=== PATIENT | female | born 1970 | race Caucasian/White ===

== ENCOUNTER 2024-08-15 21:32 | Inpatient (IN) | payer BC, MEDICAID, SELFPAY ==
--- OUTSIDE RECORDS SUMMARY | 2024-08-15 21:38 | XMS_ITS | Data Portability ---
Author Organization MARLENE Mickie liu [facility] Address [address] [place] [id number] Care Team Providers Care Bending Roll Operator Name Role Phone JUDITHCARIE SEGUNDO Referring Provider Unavailable Assessment Encounter Date Assessment Date Assessment LastModified by Organization Details LastModified Time 10/19/2023 10/19/2023 Assessment: Patient is a 53-year-old female presents to the ambulatory clinic with a counselor from [facility] with a left ankle fracture. This patient is currently experiencing a closed left trimalleolar ankle fracture that is being treated conservatively due to her medical conditions and previous history of suicide ideation. Plan: - Patient's chart was examined, assessed, and reviewed with Dr. Vero Reyes DPM - Patient education about ankle fractures was given to the patient, including it's etiologies, assessment, and treatment options. The patient had no further questions or concerns. -Radiographs of the left ankle was reviewed with the patient. Patient understood and had no further questions. -It was emphasized to the patient that she would nonweightbearing of the lower left extremity and attempt to elevate as much as possible. She will continue to wear the cam boot as much as possible to prevent further dislocation of the ankle fracture. -As stated earlier, the the ankle fracture will be treated conservatively due to her past medical history. -The left ankle was wrapped with Webril and Alexei. It was noted that she did have previous Alexei wraps upon arrival at the clinic. - Patient will return to clinic 2 weeks for reevaluation of her left ankle fracture. Not available 10/19/2023 13:05:27 11/09/2023 11/09/2023 Assessment: Patient is a 53-year-old female presents to the ambulatory clinic with a counselor from [facility] with a left ankle fracture. This patient is currently experiencing a closed left trimalleolar ankle fracture that is being treated conservatively due to her medical conditions and previous history of suicide ideation. Plan: - Patient's chart was examined, assessed, and reviewed with Dr. Vero Reyes DPM - Patient education about ankle fractures was given to the patient, including it's etiologies, assessment, and treatment options. The patient had no further questions or concerns. -Radiographs of the left ankle was reviewed with the patient. Patient understood and had no further questions. -It was emphasized to the patient that she would nonweightbearing of the lower left extremity and attempt to elevate as much as possible. She will continue to wear the cam boot as much as possible to prevent further dislocation of the ankle fracture. -As stated earlier, the the ankle fracture will be treated conservatively due to her past medical history. - Patient will return to clinic prn. Patient stated that she is moving to [place], [place] permanently due to her snf situation. She was recommended to see a recruitment assistant in the area and recommendations were given to her. Not available 11/09/2023 10:11:10 11/23/2023 11/23/2023 Assessment: Patient is a 53-year-old female presents to the ambulatory clinic with a counselor from [facility] with a left ankle fracture. This patient is currently experiencing a closed left trimalleolar ankle fracture that is being treated conservatively due to her medical conditions and previous history of suicide ideation. Plan: - Patient's chart was examined, assessed, and reviewed with Dr. Vero Reyes DPM - Patient education about ankle fractures was given to the patient, including it's etiologies, assessment, and treatment options. The patient had no further questions or concerns. -Radiographs of the left ankle was reviewed with the patient. Patient understood and had no further questions. After reviewing her distal fibula fracture, it was deem that she failed conservative treatment and would require surgery. She would need to be referred to another physician due to the lack of physicians able to perform ankle surgery in the clinic -It was emphasized to the patient that she would nonweightbearing of the lower left extremity and attempt to elevate as much as possible. She will continue to wear the cam boot as much as possible to prevent further dislocation of the ankle fracture. - Patient is referred to the Dr. Damien Zuleta for surgical intervention. Information about him was given. - Patient will return to clinic prn. Not available 11/23/2023 11:12:59 Plan of Treatment Reminders Order Date Submit Date Provider Last Modified By Organization Details Last Modified Time Details Appointments None recorded. Lab None recorded. Referral recruitment assistant referral - patient is currently moving to [place] and would need to follow up. Hx of suicidal Ideation and wheel chair bound. 2023 024 [email or web address] Priya Ba DPM, [address] [facility], [facility] [address], [place], [address], 07:21:28 recruitment assistant referral - patient failed conservativ e treatment and requires surgery. Hx of suicidal ideation. 2023 024 [email or web address] Damien Zuleta DPM, [address] [place], [address], 11:31:44 Procedures None recorded. Surgeries None recorded. Imaging None recorded. Medication Orders None recorded. Patient TargetsNo targets recorded. Patient Instructions Encounter Date Encounter Id Patient Instructions Last Modified By Organization Details Last Modified Time 10/19/2023 [id number] Added by the Teaching Physician at time of signature (see signature below). GC : I personally saw, evaluated and participated in the management plan of this patient. All findings were discussed and I agree with the plan as documented in the resident's note. Additions, if any: [email or web address] Not available 10/19/2023 13:51:32 11/09/2023 [id number] Added by the Teaching Physician at time of signature (see signature below). GC : I personally saw, evaluated and participated in the management plan of this patient. All findings were discussed and I agree with the plan as documented in the resident's note. Additions, if any: [email or web address] Not available 11/09/2023 10:20:05 11/23/2023 [id number] Added by the Teaching Physician at time of signature (see signature below). GC : I personally saw, evaluated and participated in the management plan of this patient. All findings were discussed and I agree with the plan as documented in the resident's note. Additions, if any: [email or web address] Not available 11/23/2023 11:31:20 Reason for Referral Polisher [employer] Sander Referral for Clos ed fracture of ankle patient is currently moving to [place] and would need to follow up. Hx of suicidal Ideation and wheel chair bound. Referring Physician: Vero Reyes Podiatry, Encounter Date: 11/09/2023 Polisher [employer] Sander Referral for Clos ed fracture of ankle patient failed conservative treatment and requires surgery. Hx of suicidal ideation. Referring Physician: Lei Pikeiatry, Encounter Date: 11/23/2023 Results Created Date Observation Date Name Description Value Unit Range Abnormal Flag Note LastModifiedBy Organization Detail LastModifiedTime 10/19/19 24 10/19/2023 XR, ankle , 3 or more view Patien t Name: NICOLETTE LEE [phone] Locati on: [facility] [place] [address]- Radiol ogy ACCESS ION EXAM DATE/T EDDIE PROCED URE ORDERI NG STATUS PROVID ER [id number] XR Ankle HEINO DIGITAL MARKETING PROJECT MANAGER, Auth 52 10:59 EST Comple te Left KATHLE EN A (Verif ied) Reason For Exam (XR Ankle Comple te Left) f/u hubbard b2 left ankle fractu re Report Left ankle radiog raphs, 3 views. INDICA TION: Follow -up left ankle fractu re. COMPAR CIPRIANO: None FINDIN GS/IMP RESSIO N: Redemo nstrat ion of healin g intra- articu lar obliqu e fractu re throug h the distal fibula r metaph ysis at the level of the talar dome. Additi onal tiny avulsi on deform ity of the medial malleo melyssa with wideni ng of the medial clear space. Mild soft tissue swelli ng, which improv ed as compar ed to the prior exam. Straddle Bug ior malleo melyssa appear s intact . Eva samano Site: [facility] ____ Mark salinas Report Dictat ed: 2023 11:19 am Dictat ed By: MIKE LARA MD Signat ure: 2023 11:25 am Signed By: MARCO BENJAMIN, MIKE Gonzalez ing: SYLVESTER ZHAO, VERO Singleton Consul ting: [facility] (Scheduling Dept) [address] [place] [address], [id number], 10/19/2023 13:52:10 11/09/19 24 11/09/2023 XR, ankle , 3 or more view Patien t Name: NICOLETTE LEE [phone] Locati on: [facility] [address] [address]- Radiol ogy ACCESS ION EXAM DATE/T EDDIE PROCED URE ORDERI NG STATUS PROVID ER [id number] XR Ankle HEINO D[employer] MARKETING PROJECT MANAGER, Auth 17 08:33 EDT Comple te Left KATHLE EN A (Verif ied) Reason For Exam (XR Ankle Comple te Left) left ankle fractu re and pain Report STUDY: XR Ankle Comple te Minimu m 3 Vws Left INDICA TION: : left ankle fractu re and pain COMPAR CIPRIANO: 024 FINDIN GS: The bones of the left ankle demons trate a fractu re throug h the distal fibula just above the ankle joint mortis e. A modera te amount of perios teal new bone is identi fied along the commercial front load operator ior edge fractu re. There is been no change in alignm ent. IMPRES MARQUIS: Healin g fractu re of the left distal fibula . Readrandell samano Site: [facility] ____ Fin al Report Dictat ed: 2023 8:45 am Dictat ed By: TONYA LOPEZ ND, MD Signat ure: 2023 8:47 am Signed By: TONYA LOPEZ ND, MD ing: SYLVESTER ZHAO, VERO Singleton Consul ting: [facility] (Scheduling Dept) [address] [place] [address], [id number], 11/09/2023 11:55:15 11/23/19 24 11/23/2023 XR, ankle , 3 or more view Patien t Name: NICOLETTE LEE [phone] Locati on: [facility] [address] [address]- Radiol ogy ACCESS ION EXAM DATE/T EDDIE PROCED URE ORDERI NG STATUS PROVID ER [id number] 11/23/19 24 08:31 XR Ankle AUGUST DPM, Auth 25 EDT Comple te Left ANDREIA W (Verif ied) Reason For Exam (XR Ankle Comple te Left) fractu re of ankle Report Left ankle radiog raphs, 3 views. INDICA TION: Follow -up left ankle fractu re. COMPAR CIPRIANO: Recent exam November 09, 2023 FINDIN GS/IMP RESSIO N: No apprec iable change in the appear ance of the known incomp lete healin g intra- articu lar obliqu e fractu re throug h the distal fibula r metaph ysis at the level of the talar dome. Additi onal tiny avulsi on deform ity of the medial malleo melyssa with wideni ng of the medial clear space. Mild soft tissue swelli ng, which improv ed as compar ed to the prior exam. Straddle Bug ior malleo melyssa appear s intact . Rest of the findin gs simila r to before . Readrandell samano Site: [facility] ____ Mark salinas Report Dictat ed: 2023 9:08 am Dictat ed By: CORRINE JACOBS MD onic Signat ure: 2023 9:10 am Signed By: CORRINE JACOBS MD ing: SYLVESTER ZHAO, VERO Singleton Consul ting: [facility] (Scheduling Dept) [address] [place] [address], [id number], 11/23/2023 13:09:57 Result Notes None recorded. Procedures Surgical History None recorded. Imaging Results Imaging Date Name Status LastModified by Organiz ation Details LastModified Time 10/19/2023 XR, ankle, [address] [facility] (Scheduling Dept) [address] [place], [address], 10/19/2023 13:52:10 11/09/2023 XR, ankle, [address] [facility] (Scheduling Dept) [address] [place], [address], 11/09/2023 11:55:15 11/23/2023 XR, ankle, 3 or more view completed [address] (Scheduling Dept) [address] [place], [address], 11/23/2023 13:09:57 Procedure Notes None recorded. Medical Equipment None Reported. Allergies No known drug allergies Medications Name Sig Start Date Stop Date Status Note LastModified by Organization Details LastModified Time bupropion HCl SR 150 mg tablet,12 hr sustained-re lease 11/22 completed Not Available Not Available Not Available venlafaxine ER 37.5 mg capsule,exte nded release 24 hr 11/22 completed Not Available Not Available Not Available oxybutynin chloride ER 15 mg tablet,exten ded release 24 hr active Not Available Not Available Not Available gabapentin 600 mg tablet 11/22 completed Not Available Not Available Not Available venlafaxine ER 150 mg capsule,exte nded release 24 hr Take 1 capsule every day by oral route. 11/22 completed Not Available Not Available Not Available omeprazole 40 mg capsule,clint yed release 11/22 completed Not Available Not Available Not Available bupropion HCl 100 mg tablet Take 1 tablet twice a day by oral route. active Not Available Not Available No t Available trazodone 100 mg tablet 11/22 completed Not Available Not Available Not Available buspirone 10 mg tablet 11/22 completed Not Available Not Available Not Available Ear Drops (carbamide peroxide) 6.5 % 11/22 completed Not Available Not Available Not Available gabapentin 300 mg capsule Take 1 capsule 3 times a day by oral route. active Not Available Not Available No t Available hydroxyzine HCl 25 mg tablet Take 1 tablet 3 times a day by oral route. 2023 active Not Available Not Available Not Avai lable gabapentin 100 mg capsule Take 1 capsule 3 times a day by oral route. 11/08 completed Not Available Not Available Not Available lorazepam 1 mg tablet prn for imaging/ dental active Not Available Not Available No t Available fluticasone propionate 50 mcg/actuatio n nasal spray,suspen marquis 11/22 completed Not Available Not Available Not Available Trazodone 50 mg tablet Take 1 tablet every day by oral route. active Not Available Not Available No t Available Siltussin-DM 10 mg-100 mg/5 mL oral syrup active Not Available Not Available Not Available bupropion HCl SR 200 mg tablet,12 hr sustained-re lease 11/22 completed Not Available Not Available Not Available escitalopram 10 mg tablet 11/22 completed Not Available Not Available Not Available escitalopram 20 mg tablet 11/22 completed Not Available Not Available Not Available loratadine active Not Available Not Av ailable Not Available ammonium lactate topical cream active Not Available Not Available No t Available acetaminophe n 650 mg by moyth every 6 hours as needed active Not Available Not Available No t Available methocarbamo l 750 mg bid prn for muscle spasm active Not Available Not Available No t Available trazodone 12.5 ng twice daily as needed anxiety active Not Available Not Available No t Available cholecalcife rol (vitamin D3) 50 mcg (2,000 unit) tablet 11/22 completed Not Available Not Available Not Available Gajc-Rfiq-Xy ils (multivit-fo lic-biotin) 400 mcg-2,000 mcg tablet active Not Available Not Available N ot Available Vitals Date Recorded Body height Heart rate Oxygen saturation Oxygen saturation in Arterial blood by Pulse oximetry Systolic blood pressure Diastolic blood pressure Provider Name and Address Organization Details Last Updated DateTime 4 154.94 cm 111 /min 98 % 98 % 114 mm[Hg] 66 mm[Hg] Precious Madrigal RN, [place] - [facility] 4 12:03:54 Date Recorded Body height Heart rate Oxygen saturation Oxygen saturation in Arterial blood by Pulse oximetry Systolic blood pressure Diastolic blood pressure Provider Name and Address Organization Details Last Updated DateTime 4 154.94 cm 95 /min 96 % 96 % 98 mm[Hg] 64 mm[Hg] Precious Madrigal RN [facility] 4 09:34:25 Date Recorded Body height Heart rate Oxygen saturation Oxygen saturation in Arterial blood by Pulse oximetry Systolic blood pressure Diastolic blood pressure Provider Name and Address Organization Details Last Updated DateTime 4 154.94 cm 92 /min 98 % 98 % 108 mm[Hg] 68 mm[Hg] Adry August RN [facility] 4 09:17:11 Social History Question Answer Notes LastModified by Organizat ion Details LastModified Time Tobacco Smoking Status Former Smoker Precious Madrigal RN [facility] [place] 10/19/2023 11:59:07 What Is Your Level Of Alcohol Consumption? None Information not available 10/19/2023 Are You Blind Or Do You Have Difficulty Seeing? Yes Quad Vision Patch On L Eye - Call Thang Disease Per Pt Information not available 10/19/2023 Are You Deaf Or Do You Have Serious Difficulty Hearing? No Information not available 10/19/2023 What Type Of Diet Are You Following? REGULAR Information not available 10/19/2023 Do You Currently Feel Safe Where You Live? No Information not available 10/19/2023 Have You Fallen Or Lost Your Balance In The Last 3 Months? Yes 2 Weeks Ago Fell Off Toilet In [facility] , Loc Injured L Ankle Information not available 10/19/2023 Is Patient Confused? No Information not available 10/19/2023 Is The Patient Using An Assistive Device? Yes Wc/ortho Boot Information not available 10/19/2023 Unintentional Weight Loss/gain Of Over 10 Lbs In The Past 6 Months No Information no t available 10/19/2023 Have You Traveled Outside The Country Recently? Yes Information no t available 10/19/2023 What Was The Date Of Your Most Recent Tobacco Screening? 11/23/2023 Information not available 11/23/2023 What Is Your Relationship Status? Single Information not available 10/19/2023 Do You Feel Stressed (tense, Restless, Nervous, Or Anxious, Or Unable To Sleep At Night)? [id number] Information not available 10/19/2023 Do You Use Any Illicit Or Recreational Drugs? No Information not available 10/19/2023 Sex: Unknown Functional Status Question Answer Note LastModified by Organizat ion Details LastModified Time Are you able to care for yourself? Yes homeless recent suicide attempt 08/04/23 inpt at [facility] 11/23/23awit [facility] Information not available 11/23/2023 Mental Status None recorded. Family History Nothing Reported. Medical History No medical history recorded. Gynecological HistoryNo gynecological history recorded. Obstetrics History GPAL:G 0 P 0 0 0 0 Past Encounters Encounter ID Performer Location Encounter Start Date Encounter Closed Date Diagnosis/Indication Diagnosis SNOMED-CT Code Diagnosis ICD10 Code [id number] Vero Reyes DPM [facility] - Podiatry [address] [place] [id number] 10/19/2023 11:34:27 10/19/2023 12:52:46 Closed fracture of ankle 49664659 S82.92XA [id number] Vero Reyes DPM [facility] - Podiatry [address] [place] [phone] 11/09/2023 09:19:03 11/09/2023 10:40:34 Closed fracture of ankle [id number] S82.92XA [id number] Vero Reyes DPM [facility] - Podiatry [address] [place] [phone] 11/23/2023 08:34:15 11/23/2023 11:36:55 Closed fracture of ankle [id number] S82.92XA Health Concerns Section Related Observation LastModified by Organization Detai ls LastModified Time None Recorded Concern Status LastModified by Organization Details LastModified Time None Recorded Advance Directives Directive None Recorded Payers Encounter Date Sequence Insurance Name Policy Number Policy Garcia Covered Member ID Garcia Member ID Guarantor Name 10/19/2023 1 [facility] [employer] BLUE [employer]IELD [id number] Genoveva Tadeo [id number] Genoveva Tadeo 10/19/2023 2 [place] Genoveva Carlyle [id number] Genoveva Carlyle 11/09/2023 1 [place] [facility] [id number] Genoveva Carlyle [id number] Genoveva Carlyle 11/09/2023 2 [place] [facility] Genoveva Oconnorevedo [id number] Genoveva Carlyle 11/23/2023 1 [place] [facility] [id number] Genoveva Carlyle [id number] Genoveva Carlyle 11/23/2023 2 [place] Genoveva Carlyle [id number] Genoveva Carlyle Notes Date Note Type Note Provider Name and Address Organization Details Recorded Time 10/19/2023 text/html Patient is a 53-year-old female presents to the ambulatory clinic with a counselor from [facility] with a left ankle fracture. Patient suffered syncope episode a couple weeks ago with head strike and does not recall the mechanism of her ankle injury. She associates the syncope episode with her periods. 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 Patient reports that she try to get up on left ankle and was unable to due to pain. She is under section 12 at this time. She does have an eye patch on her right eye in which she reports myopia and quadruple vision. She was placed in a cam boot with previous ALEXEI dressings a [facility]. She did suffer a previous fracture in 2021 of the left ankle. She denies calf pain, SOB, chest pain, nausea, vomiting, and fever. Vero Reyes DPM [address] [place], [phone], [facility] 10/19/2023 13:51:48 11/09/2023 text/html Patient is a 53-year-old female presents to the ambulatory clinic with a counselor from [facility] with a left trimalleolar ankle fracture. Patient suffered syncope episode a month ago with head strike and does not recall the mechanism of her ankle injury. She associates the syncope episode with her periods. 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 Patient reports that she try to get up on left ankle and was unable to due to pain. She is under section 12 at this time. She does have an eye patch on her right eye in which she reports myopia and quadruple vision. She was placed in a cam boot with previous ALEXEI dressings a [facility]. She did suffer a previous fracture in 2021 of the left ankle. She denies calf pain, SOB, chest pain, nausea, vomiting, and fever. Vero Reyes DPM [address] [place], [phone], [facility] 11/09/2023 10:20:18 11/23/2023 text/html Patient is a 53-year-old female presents to the ambulatory clinic with a counselor from [facility] with a left trimalleolar ankle fracture and returned to the clinic due to her housing situation in [place] being unsuccessful. Patient suffered syncope episode a month ago with head strike and does not recall the mechanism of her ankle injury. She associates the syncope episode with her periods. 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 Patient reports that she try to get up on left ankle and was unable to due to pain. She is under section 12 at this time. She is still wheel chair bound with a CAm boot on. She did suffer a previous fracture in 2021 of the left ankle. She denies calf pain, SOB, chest pain, nausea, vomiting, and fever. Vero Reyes DPM [address] [place], [phone], [facility] 11/23/2023 11:31:39 OBGyn Episode No OBEpisode recorded.
--- OUTSIDE RECORDS SUMMARY | 2024-08-15 21:39 | XMS_ITS | Data Portability ---
Author Organization [place] - [facility] [email or web address] Jian Address [address] [place] [address] Care Team Providers Care Tire Spotter Name Role Phone FUNMI CARRILLO Primary Care Provider XAVI MILES Referring Provider Assessment No assessment recorded. Plan of Treatment Reminders Order Date Submit Date Provider Last Modified By Organization Details Last Modified Time Details Appointments None recorded. Lab None recorded. Referral otolaryngo logist referral - please evaluate for inspire - mild sleep apnea, intolerant to cpap 2022 023 BARTOLO Mackey MD, [address] [place] [address], [id number], 3 13:17:45 Procedures None recorded. Surgeries None recorded. Imaging None recorded. Medication Orders None recorded. Patient TargetsNo targets recorded. Patient InstructionsNo instructions recorded. 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 ? Inspire please evaluate for inspire - mild sleep apnea, intolerant to cpap Referring Physician: Charles Sams, Pulmonary Disease, Encounter Date: 06/29/2023 Results Created Date Observation Date Name Description Value Unit Range Abnormal Flag Note LastModifiedBy Organization Detail LastModifiedTime 01/01/20 CPAP compl iance * No observ ation record ed. [email or web address] Not Available 12/31 15:52:55 02/13/20 23 02/11/2023 CPAP compl iance * No observ ation record ed. [email or web address] Not Available 02/12 12:28:58 02/13/20 CPAP compl iance * No observ ation record ed. [email or web address] Not Available 02/12 12:28:58 03/19/20 23 03/18/2023 CPAP compl iance * No observ ation record ed. [email or web address] Not Available 03/19 11:02:26 Result Notes None recorded. Problems Name Problem SNOMED Code Status Onset Date Resolution Date Notes Provider Name and Address Organization Details Recorded Time Obstructive sleep apnea of adult 9218701791185 Active 2022 Charles Sams PA-C [address], [place], [address] [place] [address] [employer] 12:51:44 Problem Notes None recorded. Procedures Surgical History Date Name Laterality Status Provider Name and Address Organization Details Recorded Time Carpal Tunnel Surgery completed Nichole Escobar [facility] [employer] 03/25/2023 12:30:37 Tonsillectomy completed Malaika Florence [facility] [employer] 10/08/2022 10:32:40 Imaging Results Imaging Date Name Status LastModified by Organiz ation Details LastModified Time 12/31/2022 CPAP compliance * completed [email or web address] Information not available 12/31/2022 15:52:55 02/11/2023 CPAP compliance * completed Information not available 02/12/2023 12:28:58 02/12/2023 CPAP compliance * completed Information not available 02/12/2023 12:28:58 03/18/2023 CPAP compliance * completed Information not available 03/19/2023 11:02:26 Procedure Notes None recorded. Medical Equipment None Reported. Allergies Allergen ID Allergen Name Allergen Category Reaction Reaction Severity Criticality Documentation Date Start Date Code Code System Note Provider Name and Address Organization Details Recorded Time 7847 aspirin medicatio n Not available Not available Not available 10/08/2022 1191 RxNorm BRUIS ING Malaika [facility] [employer] 10:26:06 Medications Name Sig Start Date Stop Date Status Note LastModified by Organization Details LastModified Time bupropion HCl SR 150 mg tablet,12 hr sustained-r elease Take 1 tablet twice a day by oral route for 30 days. 06/29 completed Not Available Not Available Not Available venlafaxine ER 37.5 mg capsule,ext ended release 24 hr active Not Available Not Available Not Available acetaminoph en 325 mg tablet Take as needed by oral route for 8 days. active Not Available Not Available No t Available venlafaxine ER 75 mg capsule,ext ended release 24 hr TAKE 3 CAPSULES ORALLY DAILY W/MEAL active Not Available Not Available No t Available oxybutynin chloride ER 15 mg tablet,exte nded release 24 hr Take 1 tablet every day by oral route for 30 days. active Not Available Not Available No t Available gabapentin 600 mg tablet Take 1 tablet every day by oral route at bedtime for 30 days. active Not Available Not Available No t Available trazodone 50 mg tablet 10/08 completed Not Available Not Available Not Available senna 8.6 mg tablet Take as needed by oral route for 30 days. active Not Available Not Available No t Available ondansetron HCl 4 mg tablet Take 1 tablet as needed by oral route for 10 days. active Not Available Not Available No t Available venlafaxine ER 150 mg capsule,ext ended release 24 hr active Not Available Not Available Not Available melatonin 3 mg tablet TAKE 3 TABLETS ORALLY AT BEDTIME FOR 30 DAY active Not Available Not Available No t Available omeprazole 40 mg capsule,del ayed release Take 1 capsule every day by oral route for 30 days. active Not Available Not Available No t Available trazodone 100 mg tablet TAKE 1 TABLET BY MOUTH EVERYDAY AT BEDTIME active Not Available Not Available No t Available meclizine 25 mg tablet Take 1 tablet as needed by oral route for 20 days. active Not Available Not Available No t Available buspirone 10 mg tablet active Not Available Not Available Not Available Ear Drops (carbamide peroxide) 6.5 % active Not Available Not Available Not Available gabapentin 300 mg capsule TAKE 1 CAPSULE BY MOUTH THREE TIMES A DAY active Not Available Not Available No t Available lorazepam 1 mg tablet Take 1 tablet as needed by oral route for 2 days. active Not Available Not Available No t Available fluticasone propionate 50 mcg/actuati on nasal spray,suspe nsion C[place]olla 1 spray every day by nasal route for 30 days. active Not Available Not Available No t Available loratadine 10 mg tablet TAKE 1 TABLET BY MOUTH EVERY DAY active Not Available Not Available No t Available Siltussin-D M 10 mg-100 mg/5 mL oral syrup 06/29 completed Not Available Not Available Not Available bupropion HCl SR 200 mg tablet,12 hr sustained-r elease active Not Available Not Available Not Available escitalopra m 10 mg tablet 06/29 completed Not Available Not Available Not Available escitalopra m 20 mg tablet Take 1 tablet every day by oral route for 30 days. active Not Available Not Available No t Available triamcinolo ne acetonide 0.05 % topical ointment active Not Available Not Available Not Available bupropion HCl XL 300 mg 24 hr tablet, extended release TAKE 1 TABLET BY MOUTH EVERY DAY active Not Available Not Available No t Available cholecalcif kaye (vitamin D3) 50 mcg (2,000 unit) tablet Take 1 tablet every day by oral route for 30 days. active Not Available Not Available No t Available Hair-Skin-N ails (multivit-f olic-biotin ) 400 mcg-2,000 mcg tablet active Not Available Not Available N ot Available Vitals Date Recorded Body height Body mass index (BMI) Body weight Oxygen saturation Oxygen saturation in Arterial blood by Pulse oximetry Heart rate Systolic blood pressure Diastolic blood pressure Provider Name and Address Organization Details Last Updated DateTime 3 154.94 cm 31.6 kg/m2 63121.9 3 g 99 % 99 % 94 /min 118 mm[Hg] 60 mm[Hg] Malaika Florence [facility] Sleep [facility] [employer] 3 10:25:36 Date Recorded Body height Body mass index (BMI) Body weight Oxygen saturation Oxygen saturation in Arterial blood by Pulse oximetry Heart rate Systolic blood pressure Diastolic blood pressure Provider Name and Address Organization Details Last Updated DateTime 3 154.94 cm 30.8 kg/m2 80309.5 6 g 95 % 95 % 88 /min 115 mm[Hg] 70 mm[Hg] Nichole Escobar [facility] Sleep Medicine [employer] 3 12:29:19 Date Recorded Body height Body mass index (BMI) Body weight Oxygen saturation Oxygen saturation in Arterial blood by Pulse oximetry Heart rate Systolic blood pressure Diastolic blood pressure Provider Name and Address Organization Details Last Updated DateTime 3 154.94 cm 28.9 kg/m2 27767.6 3 g 100 % 100 % 94 /min 122 mm[Hg] 84 mm[Hg] Meredith Ribera [facility] [employer] 3 11:56:10 Social History Question Answer Notes LastModified by Organizat ion Details LastModified Time Tobacco Smoking Status Former Smoker 1 PPD Malaika santos [place] - [facility] [employer] 10/08/2022 10:32:33 What Is Your Level Of Alcohol Consumption? Occasional [email or web address] Information not available 10/08/2022 Have You Been Exposed To Chemicals Or Toxins? No [email or web address] Information not available 10/08/2022 Have You Been Exposed To Heavy Metals? No [email or web address] Information not available 10/08/2022 Do You Have Any Pets? No [email or web address] Information not available 10/08/2022 Are You Passively Exposed To Smoke? Yes OCCATIONAL [email or web address] Information not available 10/08/2022 How Many Years Have You Smoked Tobacco? 25 [email or web address] Information not available 10/08/2022 Sex: Unknown Functional Status None recorded. Mental Status None recorded. Family History Relationship Description Onset Age of this Age Resolved Age Notes LastModified by Organization Details LastModified Time Father Ataxia [email or web address] Not available 10/08/2022 10:30:57 Mother Diabetes mellitus [email or web address] Not available 10/08 10:31:15 Mother Kidney disease [email or web address] Not available 10/08 10:31:21 Mother Hypertensive disorder Not available 10/08 10:31:30 Sister Hypertensive disorder [email or web address] Not available 10/08 10:31:30 Medical History Condition Response Depression Y Anxiety Disorder Y Acid Reflux (GERD) Y Heart Problems Y Gynecological HistoryNo gynecological history recorded. Obstetrics History GPAL:G 0 P 0 0 0 0 Past Encounters Encounter ID Performer Location Encounter Start Date Encounter Closed Date Diagnosis/Indication Diagnosis SNOMED-CT Code Diagnosis ICD10 Code [id number] MD Janelle Sampson ( Office) [address] [place] [address] [place] [address] 10/08/2022 09:34:15 10/08/2022 11:01:25 Obstructive sleep apnea of adult 1861629129 103 G47.33 [id number] MD Janelle Sampson (EP Office) [address] [place] [address] PADMINI CURRIE [address] 03/25/2023 11:58:53 03/25/2023 12:54:00 Obstructive sleep apnea of adult 0862158525 103 G47.33 [id number] MD Janelle Sampson (EP Office) [address] [facility] PADMINI CURRIE [address] 06/29/2023 11:49:33 06/29/2023 12:25:10 Obstructive sleep apnea of adult 4082952458 103 G47.33 Health Concerns Section Related Observation LastModified by Organization Detai ls LastModified Time None Recorded Concern Status LastModified by Organization Details LastModified Time None Recorded Advance Directives Directive None Recorded Payers Encounter Date Sequence Insurance Name Policy Number Policy Garcia Covered Member ID Garcia Member ID Guarantor Name 10/08/2022 1 [place]MEDICARE [place]AC[place]/ ADVANTAGE - HMO) [id number] Genoveva Carlyle [id number] Genoveva Carlyle 03/25/2023 2 [place] Genoveva Carlyle [id number] Genoveva Carlyle 03/25/2023 1 [place]PLAC[place]/ ADVANTAGE - HMO) [id number] Genoveva Carlyle [id number] Genoveva Carlyle 06/29/2023 2 [place] Genoveva Carlyle [id number] Genoveva Carlyle 06/29/2023 1 [place]MED[place]PLAC[place]/ ADVANTAGE - HMO) [id number] Genoveva Carlyle [id number] Genoveva Carlyle Notes Date Note Type Note Provider Name and Address Organization Details Recorded Time 10/08/2022 text/html The patient is a 52 year old f who I am seeing today for obstructive sleep apnea. Patient has a history of Call Thang disease. She also has a history of diplopia. Her roommates complain that she snores loudly. She never feels rested. She will occasionally take a nap during the day. Her typical bedtime is around 10:00 a.m.. She frequently wakes up at around 4:30 a.m.. She does not recall waking up gasping for air but she does wake up because of nightmares. In fact, she has fallen out of bed a number of times because of her nightmares. In addition, her roommates complain that she screams in her sleep. There is no history of Parkinson disease or dementia.Sleep testing: home sleep apnea testing confirmed the presence of mild obstructive sleep apnea with an apnea-hypopnea index of over 13 and a minimum oxygen saturation of 74%.. Manan Melendez MD [address] [place] [address], [phone], [facility] [employer] 10/08/2022 10:57:05 03/25/2023 text/html [facility] PAP F/UReported bypatient.Sleep Issues:obstructive sleep apnea. History of present illness:The patient is currently being treated with APAP.; The patient denies problems with sleep initiation.; She c/o sleep maintenance issues.; Complains of issues with the mask or machine.; She awakens during the night and finds the mask to be very uncomfortable. Pap questions:Problems with CPAP;problems with sleep maintenance;remove s CPAP mask during the night Pressure settings:APAP 5-20 CWP Compliance/usage:T he patient uses the device on 57 % of nights reviewed; and uses the device for > 4 hrs per night 11 % of the time.; Average usage: 2-3 hours .; AHI is 2.4. Manan Melendez MD [address] [place] [address], [phone], [facility] [employer] 03/30/2023 13:39:36 06/29/2023 text/html [facility] PAP F/UReported bypatient.Sleep Issues:obstructive sleep apnea.; Patient presents to the office for follow-up on sleep apnea and REM sleep behavior disorder. She has struggled with autopap therapy and is currently off of treatment. she did try multiple different mask style options without success. She is interested in discussing other options for treatment of the sleep apnea. Her home sleep study from June 2022 had demonstrated mild sleep apnea with an AHI of 13 events/hour of sleep. History of present illness:The patient is currently being treated with APAP. Manan Melendez MD [address], [place], [address], [facility] 06/29/2023 13:52:02 OBGyn Episode No OBEpisode recorded.
--- OUTSIDE RECORDS SUMMARY | 2024-08-15 21:39 | XMS_ITS | Continuity of Care Document ---
Author Organization [facility] Address [address] [place] [address] Phone Care Team Providers Care Financial Investment Manager Name Role Phone Marleni Rosario FRANCO Unavailable Unavailable Allergies, Adverse Reactions, Alerts Substance Reaction Status Criticality No Known Allergies Active No Inform ation Medications Medication Instructions Dosage Effective Dates (start - stop) Status Comments Tylenol 325 mg tablet take 1 tablet by oral route every 8 hrs with food as needed for pain - Active ibuprofen 600 mg tablet take 1 tablet by oral route every 8 hrs with food as needed for pain - Active ondansetron HCl 4 mg tablet take 2 tablet by oral route 2 times every day 8 MG - Active Cerovite Jr 18 mg iron-10 mcg chewable tablet - Active buspirone 10 mg tablet take 1 tablet by oral route 2 times every day 10 MG - Active venlafaxine (unknown strength) Not Available - Active BEANO BUCCAL ADH. PATCH - Active fluticasone prop (unknown strength) Not Available - Active GABAPENTIN (unknown strength) take 1 capsule by oral route 3 times every day Not Available - Active HAIR, SKIN AND NAILS (unknown strength) Not Available - Active OMEPRAZOLE (unknown strength) take 1 capsule by oral route every day before a meal Not Available - Active OXYBUTYNIN CHLORIDE ER (unknown strength) take 1 tablet by oral route every day Not Available - Active TRAZODONE HCL (unknown strength) take 1 tablet by oral route 2 times every day after meals Not Available - Active vitamin d3 (unknown strength) Not Available - Active ACETAMINOPHEN (unknown strength) Not Available - Active BENADRYL ITCH STOPPING (unknown strength) Not Available - Active CALCIUM ANTACID (unknown strength) Not Available - Active SILTUSSIN DM (unknown strength) take 10 milliliter by oral route every 4 hours as needed Not Available - Active SENNA (unknown strength) take 2 capsule by oral route every day Not Available - Active ZUPLENZ (unknown strength) take 2 film by oral route 2 times every day and place on top of the tongue where it will dissolve, then swallow Not Available - Active MUCINEX (unknown strength) take 1 tablet by oral route every 12 hours as needed Not Available - Active MECLIZINE HCL (unknown strength) take 1 tablet by oral route 3 times every day as needed Not Available - Active LORazepam (unknown strength) Not Available - Active EAR DROPS (unknown strength) instill 5 drop by otic route 2 times every day into affected ear(s) Not Available - Active DIPHENHYDRAMINE HCL (unknown strength) take 2 capsule by oral route every 4 - 6 hours as needed Not Available - Active ESCITALOPRAM OXALATE (unknown strength) take 1 tablet by oral route every day Not Available - Active BUPROPION XL (unknown strength) take 1 tablet by oral route every day Not Available - Active asprin (unknown strength) Not Available - Active Procedures Procedure Date Bitewing, Four Films Periodic Oral Evaluation Adjunctive Pre-diagnostic Test Caries Risk Assessment: Moderate Risk De Caries Oral Hygiene Instructions Comp, 2 Surf, Posterior Comp, 2 Surf, Posterior Treatment Plan Phase 2 Complete-Dental N Referral To Other Practice Prophylaxis - Adult Comp, 2 Surf, Posterior Extraction Erupted Tooth or Exposed Root Prophylaxis - Adult Treatment Plan Phase 1 Complete-Dental N Full Mouth Series New Dental Patient Comprehensve Oral Exam Oral Hygiene Instructions Caries Risk Assessment: Moderate Risk Se Advance Directives Directive Yes / No Effective Date File Name No Information Encounters Encounter Description Practice Location Reason(s) For Visit Diagnoses Date Provider Providers Copied on Encounter [facility], [address], [place], [place], [id number], [place] tel:[phone] [facility] for dental exam and cleaning w/o abnormal findings [facility]. [address] [place], [id number], [place]. tel:[phone] [facility], [address], [place], [place], [id number], [place] tel:[phone] [facility] Encounter for dental exam and cleaning w/o abnormal findings [facility]. [address] [place], [place], [id number], [place]. tel:[phone] [facility], [address], [place], [place], [id number], [place] tel:[phone] [facility] No Information [facility]. [address], [place], [id number], [place]. tel:[phone] [facility], [address], [place], [place], [id number], [place] tel:[phone] [facility] No Information [facility]. [address] [place], [place], [id number], [place]. tel:[phone] [facility], [address], [place], [place], [id number], [place] tel:[phone] [facility] No Information [facility]. [address] [place], [place], [id number], [place]. tel:[phone] [facility], [address], [place], [place], [id number], [place] tel:[phone] [facility] No Information [facility]. [address], [place], [id number], [place]. tel:[phone] [facility], [address], [place], [place], [id number], [place] tel:[phone] [facility] No Information Marleni Ponce. Odilia Dobbins [facility], [place], [place], [id number], [place]. tel:[phone] Family History Family Member Type Diagnosis Age At Onset No Information Payers Payer name Insurance type Covered democrat ID Authoriza tiemre(s) [facility] [id number] Medicaid Dental [id number] Social History Type Description Quantity Date Captured Comments Sex Female Smoking Status No Information Chief Complaint And Reason For Visit No Information Reason For Referral Reason For Referral No Information History Of Present Illness Encounter Date Complaint History Of Prese nt Illness No Information Functional Status Date Functional Assessmen t No Information Instructions Date Instruction Additional Infor mation No Information Assessments Type Assessment Date No Information Patient Care Teams Name Effective Dates (start - stop) Status Members No Information
[2024-08-15 23:07] VITALS: BMI 25.5
--- NOTE | 2024-08-16 04:39 | PC.ADMIT ---
Addendum entered by Ita Castillo RN 08/16/24 06:44: paients safety status changed to 1:1 for safety r/t her inability to self transfer, balance support and clothing manipulation Original Note: Genoveva was admitted to [facility] on a CV after being transferred from [facility] in [place]. 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 the patients mobility concerns were reviewed by the provider and administration, patient was accepted on M3 and placed on Q5 minute safety checks r/t mobility and potential risk r/t the wheel chair. Genoveva is alert and oriented X's 4 states she has been feeling increasingly suicidal r/t the of her father this past December. the patient also stated that her depression has been increasing since January after stopping all medications in December. she indicates a 20+ weight loss in the past year r/t poor appetite secondary to depression and increased stress. I used to live in an assisted living but I live with my mom, I don't really think it's the right place for me we're too much alike so we fight all the night, I don't need to be in an assisted living place, I just need some help getting around. And I have a publication distributor because I have to go to court in September for money laundering. I thought I was in a relationship with this yun and it turned out he was just cat fishing me and using my account for money laundering. Now the IRS is coming after me for 45,000 dollars. I don't have that kind of money. I really don't know what I'm going to do and that's why I've been thinking about killing myself. I'm not going to do anything until after the new year so my mom doesn't have to go through that kind of pain during the holidays . admission assessment completed, patient denies active suicidal ideation upon admission
--- NOTE | 2024-08-16 07:41 | PHA.MEDREC ---
Pharmacy Consult ? Medication Reconciliation Pharmacy reviewed med rec done by nursing. The nurse put in a note the patient also stated that her depression has been increasing since January after stopping all medications in December and looking in claims the patients medications has not been filled since December but what was confirmed in med rec matches claims.
[2024-08-16 07:46] VITALS: BP 105/64; PULSE 99; RESP 18; TEMP 36.2; O2SAT 100
[2024-08-16 08:46] LABS: Estimated Average Glucose 105 mg/dL; Hemoglobin A1C 129.8365 umol/L; Hemoglobin A1c % 5.3 % (<6.0); Total Hemoglobin (HGBA1C) 3779.3298 umol/L
--- NOTE | 2024-08-16 09:03 | P.HPPS_ITS ---
HPI Date of Service: 08/16/24 Chief Complaint: MDD severe w/o psychosis Sources of Information: patient interviewed, chart reviewed and crisis/core team assessment reviewed HPI Subjective Notes: Liang Warning and Conditional Voluntary Narrative: Patient is a 54-year-old female with history of MDD, PTSD who was brought in by ambulance to ER due to suicidal ideation secondary to increased depressive symptoms and medication noncompliance. Per crisis report, patient reported suicidal ideation with a plan on a suicide hotline however, refused to divulge details of her plan but stated she will do something after the new year . Patient reported that she had given up taking her psychiatric medications after her father in December. She also reports that her uncle in June. Patient reports multiple life stressors. She reports chronic passive suicidal ideation; denies HI/VH/AH. History of suicide attempts in 1990, 2007 and 2022; patient overdosed on Tylenol PM resulting in a medical admission in 2022. Denies any substance use. Utox negative. During admission assessment, patient presents alert and oriented x3. Calm and cooperative. Patient reports feeling depressed ; patient stated, my father in December and I noticed in January that I just started feeling worse. I gave up on life and stopped taking my meds. I want to get back on my meds to not feel depressed and not cry every second . denies SI/HI/VH/AH. Patient reports she would like referrals to outpatient psychiatric providers. Past Psychiatric History: Patient does not currently have outpatient psychiatric providers. She has not taken her psychiatric medications since 12/2023. History of suicide attempts in 1990, 2007 and 2022; patient overdosed on Tylenol PM resulting in a medical admission in 2022. History of 3 other inpatient psychiatric admissions. Medical Evaluation Reviewed: Yes [facility] Family History: Denies Social History: Lives with mother. Single. Has a 26-year-old daughter. Disability. Substance History: Denies Trauma History: Yes Diagnostics Vital Signs (24Hr): Vital Signs - 24 hr 08/16/24 07:46 Temperature 97.2 F Pulse Rate 99 Respiratory Rate 18 Blood Pressure 105/64 Pulse Oximetry 100 Oxygen Delivery Method Room Air BMI result Body Mass Index 25.5 Labs 08/16/24 08:23 Labs: Laboratory Results - last 48 hr 08/16/24 08:23 Estimat Average Glucose 105 Hemoglobin A1c % 5.3 Triglycerides Cancelled Cholesterol Cancelled LDL Cholesterol, Calc Cancelled HDL Cholesterol Cancelled TSH Cancelled Meds/Allergies Meds Home Medications ?Medication ?Instructions ?Recorded ?Confirmed ?Type bupropion HCl 300 mg 24 hr tablet, 300 mg PO DAILY 08/16/24 08/16/24 History extended release gabapentin 300 mg capsule 300 mg PO TID 08/16/24 08/16/24 History loratadine 10 mg tablet 10 mg PO DAILY 08/16/24 08/16/24 History melatonin 3 mg tablet 9 mg PO BEDTIME 08/16/24 08/16/24 History trazodone 100 mg tablet 100 mg PO BEDTIME 08/16/24 08/16/24 History venlafaxine 75 mg capsule,extended 225 mg PO DAILY 08/16/24 08/16/24 History release 24 hr Allergies Allergies Allergy/AdvReac Type Severity Reaction Status Date / Time Unable to Assess Allergy Verified 08/15/24 23:33 Mental Status Exam Mental Status Exam Patient Appearance: Appropriate Patient Orientation: Person, Place, Time and Situation Level of Consciousness: Awake and Alert Patient Behavior: Appropriate, Cooperative, Anxious and Good Eye Contact Mood Description: Depressed and Anxious Affect Description: Depressed Ability to Follow Directions: Good Speech Pattern: Clear and Appropriate Memory Description: Intact Hallucinations: None Delusions: Not Present Thought Process: Intact and Goal Oriented Thought Content: positive for Intact Judgement: Fair Assessment & Plan Assessment & Plan (1) MDD (major depressive disorder), recurrent episode, severe: Status: Acute Code(s): F33.2 - Major depressive disorder, recurrent severe without psychotic features (2) PTSD (post-traumatic stress disorder): Status: Acute Code(s): F43.10 - Post-traumatic stress disorder, unspecified Plan Patient is a 54-year-old female with history of MDD, PTSD who was brought in by ambulance to ER due to suicidal ideation secondary to increased depressive symptoms and medication noncompliance. Plan: CV 1:1 Continue home medications encourage groups obtain collateral Referral to outpatient psychiatric providers discharge planning Patient educated on: diagnosis and medication risk/benefits Reason for continued inpatient stay Substantial Risk for: harm to self and med/psych decompensation Statement Statement: I have reviewed the history and physical and performed a pertinent examination on my patient. No changes have occurred unless specified. If the History and Physical was not performed prior to admission, the Hospitalist's service will be consulted for completing the admission physical. Time Spent With Patient Time: Total time managing care of this patient today _60___ minutes.
[2024-08-16 09:27] LABS: Alanine Aminotransferase 23 U/L (0-31); Albumin Level 4.2 g/dL (3.5-5.0); Alkaline Phosphatase 76 U/L (39-117); Anion Gap 15 (12-20); Aspartate Amino Transferase 19 U/L (5-31); Bilirubin Total 0.2 mg/dL (0.0-1.0); Blood Urea Nitrogen 17 mg/dL (9-16); Calcium 9.8 mg/dL (8.4-10.2); Carbon Dioxide 27 mmol/L (22-29); Chloride 104 mmol/L (96-108); Cholesterol 203 mg/dL (<200); Creatinine Clr Calc Pharmacy 70.4; Estimated Glomerular Filt Rate > 60; Glucose Random 97 mg/dL (60-115); HDL Cholesterol 54 mg/dL (>40); LDL Cholesterol Calculated 109 mg/dL (<100); Potassium 4.8 mmol/L (3.3-5.1); Sodium 141 mmol/L (135-145); Total Protein 7.6 g/dL (6.5-8.0); Triglycerides 201 mg/dL (<150)
[2024-08-16 10:40] LABS: TSH reflex Free T4 2.63 uIU/mL (0.32-4.0)
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
[2024-08-16] MEDS: Gabapentin 300 MG CAPSULE PO ×2 (14:17→20:20)
[2024-08-16] MEDS: buPROPion HCl XL 300 MG TAB.ER.24H PO (14:17)
[2024-08-16] MEDS: Loratadine 10 MG TABLET PO (14:17)
[2024-08-16 20:20] VITALS: BP 99/58; PULSE 91; RESP 18; TEMP 36.3; O2SAT 98
[2024-08-16] MEDS: traZODone HCL 100 MG TABLET PO (20:20)
[2024-08-16] MEDS: Melatonin 3 MG TABLET 9 MG PO (20:20)
[2024-08-17] MEDS: Acetaminophen 325 MG TABLET 650 MG PO ×2 (05:08→15:59)
[2024-08-17 07:30] VITALS: BP 93/53; PULSE 79; RESP 12; TEMP 36.2; O2SAT 100
[2024-08-17] MEDS: Loratadine 10 MG TABLET PO (09:17)
[2024-08-17] MEDS: Gabapentin 300 MG CAPSULE PO ×2 (09:17→15:25)
[2024-08-17] MEDS: Venlafaxine HCl ER 37.5 MG CAP.ER.24H PO (09:17)
[2024-08-17] MEDS: buPROPion HCl XL 300 MG TAB.ER.24H PO (09:17)
--- NOTE | 2024-08-17 10:59 | P.PNPSI_ITS ---
Subjective Subjective Date of Service: 08/17/24 Reason For Visit: MDD severe w/o psychosis Subjective Notes: Conditional Voluntary Interim History: Patient was seen and discussed in rounds today. Records and plans were reviewed. She continues to be on one-to-one because of mobility/safety. Continues to endorse depression and anxiety. She is nevertheless brighter in her affect and more social. Eating and sleeping adequately. She is requesting to go back on Prilosec 40 mg because of recurrence of upper GI symptoms. 40 mg was ordered. Review of Systems Review of Systems Upper GI complaints Yes all other systems are reviewed and are negative Mental Status Exam Mental Status Exam Patient Appearance: Appropriate Patient Orientation: Person, Place, Time and Situation Level of Consciousness: Awake and Alert Patient Behavior: Appropriate, Cooperative, Anxious and Good Eye Contact Mood Description: Depressed and Anxious Affect Description: Depressed Ability to Follow Directions: Good Speech Pattern: Clear and Appropriate Memory Description: Intact Hallucinations: None Delusions: Not Present Thought Process: Intact and Goal Oriented Thought Content: positive for Intact Judgement: Fair Diagnostics Vital Signs (24Hr): Vital Signs - 24 hr 08/16/24 20:20 08/17/24 07:30 Temperature 97.3 F 97.1 F Pulse Rate 91 79 Respiratory Rate 18 12 Blood Pressure 99/58 L 93/53 L Pulse Oximetry 98 100 Oxygen Delivery Method Room Air Room Air BMI result Body Mass Index 25.5 Labs 08/16/24 08:23 Labs: Laboratory Results - last 48 hr 08/16/24 08/16/24 08/16/24 08:23 08:23 08:23 Sodium 141 Potassium 4.8 Chloride 104 Carbon Dioxide 27 Anion Gap 15 BUN 17 H Creatinine 0.83 Estim Creat Clear Calc 70.4 Estimated GFR > 60 Random Glucose 97 Estimat Average Glucose 105 Hemoglobin A1c % 5.3 Calcium 9.8 Total Bilirubin 0.2 AST 19 ALT 23 Alkaline Phosphatase 76 Total Protein 7.6 Albumin 4.2 Triglycerides 201 H Cancelled Cholesterol 203 H Cancelled LDL Cholesterol, Calc 109 H HDL Cholesterol TSH 08/16/24 08/16/24 08/16/24 08:23 08:23 08:23 Sodium Potassium Chloride Carbon Dioxide Anion Gap BUN Creatinine Estim Creat Clear Calc Estimated GFR Random Glucose Estimat Average Glucose Hemoglobin A1c % Calcium Total Bilirubin AST ALT Alkaline Phosphatase Total Protein Albumin Triglycerides Cholesterol LDL Cholesterol, Calc Cancelled HDL Cholesterol 54 Cancelled TSH 2.63 Cancelled Medications Medications Current Medications Acetaminophen (Acetaminophen 325 Mg Tablet) 650 mg PO Q6H PRN PRN Reason: Headache/Pain Mild Scale (1-3) Last Admin: 08/17/24 05:08 Dose: 650 mg Al Hydroxide/Mg Hydroxide (Magnesium Hydrox/Alum Hydrox 30 Ml Oral.Susp) 30 ml PO Q6H PRN PRN Reason: Heartburn/Nausea Bupropion HCl (Bupropion Hcl Xl 300 Mg Tab.Er.24h) 300 mg PO DAILY [facility] Last Admin: 08/17/24 09:17 Dose: 300 mg Gabapentin (Gabapentin 300 Mg Capsule) 300 mg PO TID [facility] Last Admin: 08/17/24 09:17 Dose: 300 mg Hydroxyzine HCl (Hydroxyzine Hcl 25 Mg Tablet) 25 mg PO Q6H PRN PRN Reason: Anxiety Loratadine (Loratadine 10 Mg Tablet) 10 mg PO DAILY [facility] Last Admin: 08/17/24 09:17 Dose: 10 mg Magnesium Hydroxide (Milk Of Magnesia 30 Ml Oral.Susp) 30 ml PO DAILY PRN PRN Reason: Constipation Melatonin (Melatonin 3 Mg Tablet) 9 mg PO BEDTIME [facility] Last Admin: 08/16/24 20:20 Dose: 9 mg Nicotine (Nicotine 21 Mg Patch.Td24) 21 mg TRANSDERMA DAILY PRN PRN Reason: smoking cessation Nicotine Polacrilex (Nicotine Polacrilex 2 Mg Gum) 4 mg BUCCAL Q2H PRN PRN Reason: nicotine cravings Trazodone HCl (Trazodone Hcl 100 Mg Tablet) 100 mg PO BEDTIME [facility] Last Admin: 08/16/24 20:20 Dose: 100 mg Venlafaxine HCl (Venlafaxine Hcl Er 37.5 Mg Cap.Er.24h) 37.5 mg PO DAILY [facility] Last Admin: 08/17/24 09:17 Dose: 37.5 mg Allergies Allergies Allergy/AdvReac Type Severity Reaction Status Date / Time Unable to Assess Allergy Verified 08/15/24 23:33 Assessment & Plan Assessment & Plan (1) Medical clearance for psychiatric admission: Status: Acute Code(s): Z00.8 - Encounter for other general examination (2) MDD (major depressive disorder), recurrent episode, severe: Status: Acute Code(s): F33.2 - Major depressive disorder, recurrent severe without psychotic features (3) PTSD (post-traumatic stress disorder): Status: Acute Code(s): F43.10 - Post-traumatic stress disorder, unspecified Plan Pt is a 54-year-old female with a 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 Medical consult for admission H&P. Mood disorder Plan as per psychiatry Call-Thang disease Hereditary, paternal Pt chronically wheelchair bound and with right eye patch Reports no longer taking any medication or following with PCP/Neurology Continue gabapentin Can consider baclofen prn for a muscle spasms Patient otherwise denies any acute medical complaints or chronic medical conditions. Will sign for now. Thank you for allowing us to participate in the care of this patient. Please re-consult if any acute issue or need arises. 08/17: Continue current regimen and plans. Added Prilosec 40 mg daily Patient educated on: medication risk/benefits Reason for continued inpatient stay Substantial Risk for: med/psych decompensation Time Spent With Patient Time: Total time managing care of this patient today ____ minutes.
[2024-08-17] MEDS: Omeprazole 40 MG CAPSULE.DR PO (12:45)
[2024-08-17 20:00] VITALS: BP 95/48; PULSE 83; RESP 14; TEMP 36.4; O2SAT 100
[2024-08-18] MEDS: Omeprazole 40 MG CAPSULE.DR PO (06:39)
[2024-08-18 07:45] VITALS: BP 100/63; PULSE 101; RESP 16; TEMP 36.3; O2SAT 96
[2024-08-18 08:00] VITALS: BP 100/63; PULSE 101; RESP 16; TEMP 36.3; O2SAT 96
[2024-08-18] MEDS: Gabapentin 300 MG CAPSULE PO ×3 (09:24→21:21)
[2024-08-18] MEDS: Loratadine 10 MG TABLET PO (09:24)
[2024-08-18] MEDS: buPROPion HCl XL 300 MG TAB.ER.24H PO (09:24)
[2024-08-18] MEDS: Venlafaxine HCl ER 37.5 MG CAP.ER.24H PO (09:24)
[2024-08-18] MEDS: Flu Vacc TS2024-25(6mos up)/PF 0.5 ML SYRINGE IM (15:18)
--- NOTE | 2024-08-18 15:47 | HO.PSYCHPN ---
Subjective Subjective Date of Service: 08/18/24 Reason For Visit: MDD severe w/o psychosis Interim History: jerrod, cooperative. eyepatch, wheelchair. reports depression since losses in her family. laughing, recounting her telling someone she would not kill herself until after the new year. insists she is sincere in her statement, however. reports having been off her meds since december, when her father , and feeling improved already since restarting in recent days. Mental Status Exam Mental Status Exam Narrative: adequately dressed and groomed. wheelchair, eye patch. cooperative. lots of repositioning in chair, leaning in. speech incr amount, nml rate, decr latency. thoughts linear and logical. affect hyper-intense, min-labile. mood depressed. SI 5/10. no HI/AVH expressed. Diagnostics Vital Signs (24Hr): Vital Signs - 24 hr 08/17/24 20:00 08/18/24 07:45 08/18/24 08:00 Temperature 97.5 F 97.3 F 97.3 F Pulse Rate 83 101 H 101 H Respiratory Rate 14 16 16 Blood Pressure 95/48 L 100/63 100/63 Pulse Oximetry 100 96 96 Oxygen Delivery Method Room Air Room Air Room Air BMI result Body Mass Index 25.5 Labs 08/16/24 08:23 Medications Medications Current Medications Acetaminophen (Acetaminophen 325 Mg Tablet) 650 mg PO Q6H PRN PRN Reason: Headache/Pain Mild Scale (1-3) Last Admin: 08/17/24 15:59 Dose: 650 mg Al Hydroxide/Mg Hydroxide (Magnesium Hydrox/Alum Hydrox 30 Ml Oral.Susp) 30 ml PO Q6H PRN PRN Reason: Heartburn/Nausea Bupropion HCl (Bupropion Hcl Xl 300 Mg Tab.Er.24h) 300 mg PO DAILY [facility] Last Admin: 08/18/24 09:24 Dose: 300 mg Gabapentin (Gabapentin 300 Mg Capsule) 300 mg PO TID [facility] Last Admin: 08/18/24 15:18 Dose: 300 mg Hydroxyzine HCl (Hydroxyzine Hcl 25 Mg Tablet) 25 mg PO Q6H PRN PRN Reason: Anxiety Loratadine (Loratadine 10 Mg Tablet) 10 mg PO DAILY [facility] Last Admin: 08/18/24 09:24 Dose: 10 mg Magnesium Hydroxide (Milk Of Magnesia 30 Ml Oral.Susp) 30 ml PO DAILY PRN PRN Reason: Constipation Melatonin (Melatonin 3 Mg Tablet) 9 mg PO BEDTIME [facility] Last Admin: 08/18/24 01:40 Dose: Not Given Nicotine (Nicotine 21 Mg Patch.Td24) 21 mg TRANSDERMA DAILY PRN PRN Reason: smoking cessation Nicotine Polacrilex (Nicotine Polacrilex 2 Mg Gum) 4 mg BUCCAL Q2H PRN PRN Reason: nicotine cravings Omeprazole (Omeprazole 40 Mg Capsule.Dr) 40 mg PO DAILY@0630 [facility] Last Admin: 08/18/24 06:39 Dose: 40 mg Trazodone HCl (Trazodone Hcl 100 Mg Tablet) 100 mg PO BEDTIME [facility] Last Admin: 08/18/24 01:41 Dose: Not Given Venlafaxine HCl (Venlafaxine Hcl Er 37.5 Mg Cap.Er.24h) 37.5 mg PO DAILY [facility] Last Admin: 08/18/24 09:24 Dose: 37.5 mg Allergies Allergies Allergy/AdvReac Type Severity Reaction Status Date / Time Unable to Assess Allergy Verified 08/15/24 23:33 Assessment & Plan Assessment & Plan (1) Medical clearance for psychiatric admission: Status: Acute Code(s): Z00.8 - Encounter for other general examination (2) MDD (major depressive disorder), recurrent episode, severe: Status: Acute Code(s): F33.2 - Major depressive disorder, recurrent severe without psychotic features (3) PTSD (post-traumatic stress disorder): Status: Acute Code(s): F43.10 - Post-traumatic stress disorder, unspecified Plan Pt is a 54-year-old female with a 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 Medical consult for admission H&P. Mood disorder Plan as per psychiatry Call-Thang disease Hereditary, paternal Pt chronically wheelchair bound and with right eye patch Reports no longer taking any medication or following with PCP/Neurology Continue gabapentin Can consider baclofen prn for a muscle spasms Patient otherwise denies any acute medical complaints or chronic medical conditions. Will sign for now. Thank you for allowing us to participate in the care of this patient. Please re-consult if any acute issue or need arises. 08/17: Continue current regimen and plans. Added Prilosec 40 mg daily 08/18: feeling a bit improved since restarting meds, SI now 12/31. continue current mgmt. Reason for continued inpatient stay Substantial Risk for: harm to self, inability to function and rapid decompensation Time Spent With Patient Time: Total time managing care of this patient today __25__ minutes.
[2024-08-18 16:52] LABS: Appearance Urine Clear; Color Urine Yellow; Glucose Urine UA Negative (Negative); Leukocyte Esterase Urine Trace (Negative); Nitrite Urine Negative (Negative); PH 5.5 (5.0-9.0); UMIC TRIGGER UACC YES; Urine Blood Small (1+) (Negative); Urine Ketones Negative (Negative); Urine Protein Negative (Neg-Trace)
[2024-08-18 17:09] LABS: Bacteria Urine None Seen (None Seen); Hyaline Casts Urine 0-2 /LPF (0-2); Squamous Epithelial Cell Urine 0-2 /HPF (0-2); WBC Urine 0-5 /HPF (0-5)
[2024-08-18 20:00] VITALS: BP 97/60; PULSE 83; RESP 16; TEMP 36.8; O2SAT 99
[2024-08-18] MEDS: traZODone HCL 100 MG TABLET PO (21:21)
[2024-08-18] MEDS: Melatonin 3 MG TABLET 9 MG PO (21:21)
[2024-08-19] MEDS: Omeprazole 40 MG CAPSULE.DR PO (06:22)
[2024-08-19 07:45] VITALS: BP 97/50; PULSE 86; RESP 14; TEMP 36.7; O2SAT 98
[2024-08-19] MEDS: Gabapentin 300 MG CAPSULE PO ×3 (08:27→20:22)
[2024-08-19] MEDS: buPROPion HCl XL 300 MG TAB.ER.24H PO (08:27)
[2024-08-19] MEDS: Venlafaxine HCl ER 37.5 MG CAP.ER.24H PO (08:27)
[2024-08-19] MEDS: Loratadine 10 MG TABLET PO (08:27)
--- NOTE | 2024-08-19 13:28 | HO.PSYCHPN ---
Subjective Subjective Date of Service: 08/19/24 Reason For Visit: MDD severe w/o psychosis Subjective Notes: Conditional Voluntary Interim History: Active on unit, social with peers. attending groups. observed laughing and joking with peers. patient reports she is starting to feel better ; she reports sleeping well. Patient states she plans on continuing to take her medications as prescribed. denies SI/HI/VH/AH. Discussed plan to discharge home early next week if she continues to improve. Medication Compliance: Yes Side effects from medications: No Attending Groups: Yes Review of Systems Constitutional: Reports as per HPI Eyes: Reports as per HPI Reports as per HPI Cardiovascular: Reports as per HPI Respiratory: Reports as per HPI Gastrointestinal: Reports as per HPI Musculoskeletal: Reports as per HPI Skin/Breast: Reports as per HPI Reports as per HPI Psychiatric: Reports as per HPI Endocrine: Reports as per HPI Hematologic/Lymphatic: Reports as per HPI Allergic/Immunologic: Reports as per HPI Mental Status Exam Mental Status Exam Narrative: Pt is alert and oriented; behavior is cooperative, friendly and calm; dressed in casual attire; mood is described as improving ; eye contact appropriate; Speech is normal rate, volume and not pressured; thought process is organized; Thought content is on tx; denies SI/HI/VH/AH. Diagnostics Vital Signs (24Hr): Vital Signs - 24 hr 08/18/24 20:00 08/19/24 07:45 Temperature 98.2 F 98.1 F Pulse Rate 83 86 Respiratory Rate 16 14 Blood Pressure 97/60 97/50 L Pulse Oximetry 99 98 Oxygen Delivery Method Room Air Room Air BMI result Body Mass Index 25.5 Labs 08/16/24 08:23 Labs: Laboratory Results - last 48 hr 08/18/24 16:34 Urine Color Yellow Urine Appearance Clear Urine pH 5.5 Ur Specific [place] 1.010 Urine Protein Negative Urine Glucose (UA) Negative Urine Ketones Negative Urine Blood Small (1+) H Urine Nitrite Negative Ur Leukocyte Esterase Trace H Urine RBC 3-5 H Urine WBC 0-5 Ur Squamous Epith Cells 0-2 Urine Bacteria None Seen Hyaline Casts 0-2 Medications Medications Current Medications Acetaminophen (Acetaminophen 325 Mg Tablet) 650 mg PO Q6H PRN PRN Reason: Headache/Pain Mild Scale (1-3) Last Admin: 08/17/24 15:59 Dose: 650 mg Al Hydroxide/Mg Hydroxide (Magnesium Hydrox/Alum Hydrox 30 Ml Oral.Susp) 30 ml PO Q6H PRN PRN Reason: Heartburn/Nausea Bupropion HCl (Bupropion Hcl Xl 300 Mg Tab.Er.24h) 300 mg PO DAILY [facility] Last Admin: 08/19/24 08:27 Dose: 300 mg Gabapentin (Gabapentin 300 Mg Capsule) 300 mg PO TID [facility] Last Admin: 08/19/24 08:27 Dose: 300 mg Hydroxyzine HCl (Hydroxyzine Hcl 25 Mg Tablet) 25 mg PO Q6H PRN PRN Reason: Anxiety Loratadine (Loratadine 10 Mg Tablet) 10 mg PO DAILY [facility] Last Admin: 08/19/24 08:27 Dose: 10 mg Magnesium Hydroxide (Milk Of Magnesia 30 Ml Oral.Susp) 30 ml PO DAILY PRN PRN Reason: Constipation Melatonin (Melatonin 3 Mg Tablet) 9 mg PO BEDTIME [facility] Last Admin: 08/18/24 21:21 Dose: 9 mg Nicotine (Nicotine 21 Mg Patch.Td24) 21 mg TRANSDERMA DAILY PRN PRN Reason: smoking cessation Nicotine Polacrilex (Nicotine Polacrilex 2 Mg Gum) 4 mg BUCCAL Q2H PRN PRN Reason: nicotine cravings Omeprazole (Omeprazole 40 Mg Capsule.Dr) 40 mg PO DAILY@0630 [facility] Last Admin: 08/19/24 06:22 Dose: 40 mg Trazodone HCl (Trazodone Hcl 100 Mg Tablet) 100 mg PO BEDTIME [facility] Last Admin: 08/18/24 21:21 Dose: 100 mg Venlafaxine HCl (Venlafaxine Hcl Er 37.5 Mg Cap.Er.24h) 37.5 mg PO DAILY [facility] Last Admin: 08/19/24 08:27 Dose: 37.5 mg Allergies Allergies Allergy/AdvReac Type Severity Reaction Status Date / Time Unable to Assess Allergy Verified 08/15/24 23:33 Assessment & Plan Assessment & Plan (1) MDD (major depressive disorder), recurrent episode, severe: Status: Acute Code(s): F33.2 - Major depressive disorder, recurrent severe without psychotic features (2) PTSD (post-traumatic stress disorder): Status: Acute Code(s): F43.10 - Post-traumatic stress disorder, unspecified Plan Patient is a 54-year-old female with history of MDD, PTSD who was brought in by ambulance to ER due to suicidal ideation secondary to increased depressive symptoms and medication noncompliance. Plan: CV 1:1 Continue home medications encourage groups obtain collateral Referral to outpatient psychiatric providers discharge planning 08/17: Continue current regimen and plans. Added Prilosec 40 mg daily 08/18: feeling a bit improved since restarting meds, SI now 12/31. continue current mgmt. 08/19: Active on unit, social with peers. attending groups. observed laughing and joking with peers. patient reports she is starting to feel better ; she reports sleeping well. Patient states she plans on continuing to take her medications as prescribed. denies SI/HI/VH/AH. Discussed plan to discharge home early next week if she continues to improve. Patient educated on: diagnosis, medication risk/benefits and therapeutic strategies Reason for continued inpatient stay Substantial Risk for: med/psych decompensation Time Spent With Patient Time: Total time managing care of this patient today _20___ minutes.
[2024-08-19 20:00] VITALS: BP 95/52; PULSE 93; RESP 16; TEMP 36.6; O2SAT 98
[2024-08-19] MEDS: traZODone HCL 100 MG TABLET PO (20:22)
[2024-08-19] MEDS: Melatonin 3 MG TABLET 9 MG PO (20:22)
[2024-08-20] MEDS: hydrOXYzine HCL 25 MG TABLET PO ×3 (02:43→21:35)
[2024-08-20] MEDS: Omeprazole 40 MG CAPSULE.DR PO (06:19)
[2024-08-20 07:57] VITALS: BP 95/56; PULSE 100; RESP 16; TEMP 36.6; O2SAT 97
[2024-08-20] MEDS: Loratadine 10 MG TABLET PO (08:31)
[2024-08-20] MEDS: buPROPion HCl XL 300 MG TAB.ER.24H PO (08:31)
[2024-08-20] MEDS: Gabapentin 300 MG CAPSULE PO ×3 (08:31→21:35)
[2024-08-20] MEDS: Venlafaxine HCl ER 37.5 MG CAP.ER.24H PO (08:31)
--- NOTE | 2024-08-20 10:42 | P.PNPSI_ITS ---
Subjective Subjective Date of Service: 08/20/24 Reason For Visit: MDD severe w/o psychosis Interim History: Active on unit, social with peers. attending groups. observed laughing and joking with peers. Reports feeling improved. Not too bad. Had sleep disruption last night and wondering about increase in Trazodone. No SI/HI/AVH. Remains on 1:1 due to fall risk and wheelchair use. Review of Systems Review of Systems Upper GI complaints Yes all other systems are reviewed and are negative Constitutional: Reports as per HPI Eyes: Reports as per HPI Reports as per HPI Cardiovascular: Reports as per HPI Respiratory: Reports as per HPI Gastrointestinal: Reports as per HPI Musculoskeletal: Reports as per HPI Skin/Breast: Reports as per HPI Reports as per HPI Psychiatric: Reports as per HPI Endocrine: Reports as per HPI Hematologic/Lymphatic: Reports as per HPI Allergic/Immunologic: Reports as per HPI Mental Status Exam Mental Status Exam Narrative: Pt is alert and oriented; behavior is cooperative, friendly and calm; dressed in casual attire; mood is described as improving ; eye contact appropriate; Speech is normal rate, volume and not pressured; thought process is organized; Thought content is on tx; denies SI/HI/VH/AH. Patient Appearance: Appropriate Patient Orientation: Person, Place, Time and Situation Level of Consciousness: Awake and Alert Patient Behavior: Appropriate, Cooperative, Anxious and Good Eye Contact Mood Description: Depressed and Anxious Affect Description: Depressed Ability to Follow Directions: Good Speech Pattern: Clear and Appropriate Memory Description: Intact Diagnostics Vital Signs (24Hr): Vital Signs - 24 hr 08/19/24 20:00 08/20/24 07:57 Temperature 97.9 F 97.9 F Pulse Rate 93 100 Respiratory Rate 16 16 Blood Pressure 95/52 L 95/56 L Pulse Oximetry 98 97 Oxygen Delivery Method Room Air Room Air BMI result Body Mass Index 25.5 Labs 08/16/24 08:23 Labs: Laboratory Results - last 48 hr 08/18/24 16:34 Urine Color Yellow Urine Appearance Clear Urine pH 5.5 Ur Specific [place] 1.010 Urine Protein Negative Urine Glucose (UA) Negative Urine Ketones Negative Urine Blood Small (1+) H Urine Nitrite Negative Ur Leukocyte Esterase Trace H Urine RBC 3-5 H Urine WBC 0-5 Ur Squamous Epith Cells 0-2 Urine Bacteria None Seen Hyaline Casts 0-2 Medications Medications Current Medications Acetaminophen (Acetaminophen 325 Mg Tablet) 650 mg PO Q6H PRN PRN Reason: Headache/Pain Mild Scale (1-3) Last Admin: 08/17/24 15:59 Dose: 650 mg Al Hydroxide/Mg Hydroxide (Magnesium Hydrox/Alum Hydrox 30 Ml Oral.Susp) 30 ml PO Q6H PRN PRN Reason: Heartburn/Nausea Bupropion HCl (Bupropion Hcl Xl 300 Mg Tab.Er.24h) 300 mg PO DAILY [facility] Last Admin: 08/20/24 08:31 Dose: 300 mg Gabapentin (Gabapentin 300 Mg Capsule) 300 mg PO TID [facility] Last Admin: 08/20/24 08:31 Dose: 300 mg Hydroxyzine HCl (Hydroxyzine Hcl 25 Mg Tablet) 25 mg PO Q6H PRN PRN Reason: Anxiety Last Admin: 08/20/24 08:31 Dose: 25 mg Loratadine (Loratadine 10 Mg Tablet) 10 mg PO DAILY [facility] Last Admin: 08/20/24 08:31 Dose: 10 mg Magnesium Hydroxide (Milk Of Magnesia 30 Ml Oral.Susp) 30 ml PO DAILY PRN PRN Reason: Constipation Melatonin (Melatonin 3 Mg Tablet) 9 mg PO BEDTIME [facility] Last Admin: 08/19/24 20:22 Dose: 9 mg Nicotine (Nicotine 21 Mg Patch.Td24) 21 mg TRANSDERMA DAILY PRN PRN Reason: smoking cessation Nicotine Polacrilex (Nicotine Polacrilex 2 Mg Gum) 4 mg BUCCAL Q2H PRN PRN Reason: nicotine cravings Omeprazole (Omeprazole 40 Mg Capsule.Dr) 40 mg PO DAILY@0630 [facility] Last Admin: 08/20/24 06:19 Dose: 40 mg Trazodone HCl (Trazodone Hcl 100 Mg Tablet) 100 mg PO BEDTIME [facility] Last Admin: 08/19/24 20:22 Dose: 100 mg Venlafaxine HCl (Venlafaxine Hcl Er 37.5 Mg Cap.Er.24h) 37.5 mg PO DAILY [facility] Last Admin: 08/20/24 08:31 Dose: 37.5 mg Allergies Allergies Allergy/AdvReac Type Severity Reaction Status Date / Time Unable to Assess Allergy Verified 08/15/24 23:33 Assessment & Plan Assessment & Plan (1) MDD (major depressive disorder), recurrent episode, severe: Status: Acute Code(s): F33.2 - Major depressive disorder, recurrent severe without psychotic features (2) PTSD (post-traumatic stress disorder): Status: Acute Code(s): F43.10 - Post-traumatic stress disorder, unspecified Plan Patient is a 54-year-old female with history of MDD, PTSD who was brought in by ambulance to ER due to suicidal ideation secondary to increased depressive symptoms and medication noncompliance. Plan: CV 1:1 Continue home medications encourage groups obtain collateral Referral to outpatient psychiatric providers discharge planning 08/17: Continue current regimen and plans. Added Prilosec 40 mg daily 08/18: feeling a bit improved since restarting meds, SI now 12/31. continue current mgmt. 08/19: Active on unit, social with peers. attending groups. observed laughing and joking with peers. patient reports she is starting to feel better ; she reports sleeping well. Patient states she plans on continuing to take her medications as prescribed. denies SI/HI/VH/AH. Discussed plan to discharge home early next week if she continues to improve. 08/20: Continue current management and treatment plan. Reason for continued inpatient stay Substantial Risk for: harm to self, inability to function, rapid decompensation and med/psych decompensation Time Spent With Patient Time: Total time managing care of this patient today ____ minutes.
[2024-08-20] MEDS: Ibuprofen 400 MG TABLET PO (15:00)
[2024-08-20 20:00] VITALS: BP 91/55; PULSE 86; RESP 18; TEMP 36.3; O2SAT 99
[2024-08-20] MEDS: traZODone HCL 50 MG TABLET 150 MG PO (21:35)
[2024-08-20] MEDS: Melatonin 3 MG TABLET 9 MG PO (21:35)
[2024-08-21] MEDS: Omeprazole 40 MG CAPSULE.DR PO (06:41)
[2024-08-21 08:00] VITALS: BP 101/60; PULSE 87; RESP 14; TEMP 36.5; O2SAT 95
[2024-08-21] MEDS: Gabapentin 300 MG CAPSULE PO ×3 (08:47→20:37)
[2024-08-21] MEDS: buPROPion HCl XL 300 MG TAB.ER.24H PO (08:47)
[2024-08-21] MEDS: Venlafaxine HCl ER 37.5 MG CAP.ER.24H PO (08:47)
[2024-08-21] MEDS: Loratadine 10 MG TABLET PO (08:47)
--- NOTE | 2024-08-21 09:59 | HO.PSYCHPN ---
Subjective Subjective Date of Service: 08/21/24 Reason For Visit: MDD severe w/o psychosis Interim History: Patient seen. She reports sleep improved with the increase in Trazodone. Active on unit, social with peers. attending groups. observed laughing and joking with peers. Reports feeling improved. No SI/HI/AVH. Remains on 1:1 due to fall risk and wheelchair use. Review of Systems Review of Systems Upper GI complaints Yes all other systems are reviewed and are negative Constitutional: Reports as per HPI Eyes: Reports as per HPI Reports as per HPI Cardiovascular: Reports as per HPI Respiratory: Reports as per HPI Gastrointestinal: Reports as per HPI Musculoskeletal: Reports as per HPI Skin/Breast: Reports as per HPI Reports as per HPI Psychiatric: Reports as per HPI Endocrine: Reports as per HPI Hematologic/Lymphatic: Reports as per HPI Allergic/Immunologic: Reports as per HPI Mental Status Exam Mental Status Exam Narrative: Pt is alert and oriented; behavior is cooperative, friendly and calm; dressed in casual attire; mood is described as improving ; eye contact appropriate; Speech is normal rate, volume and not pressured; thought process is organized; Thought content is on tx; denies SI/HI/VH/AH. Patient Appearance: Appropriate Patient Orientation: Person, Place, Time and Situation Level of Consciousness: Awake and Alert Patient Behavior: Appropriate, Cooperative, Anxious and Good Eye Contact Mood Description: Depressed and Anxious Affect Description: Depressed Ability to Follow Directions: Good Speech Pattern: Clear and Appropriate Memory Description: Intact Diagnostics Vital Signs (24Hr): Vital Signs - 24 hr 08/20/24 20:00 08/21/24 08:00 Temperature 97.4 F 97.7 F Pulse Rate 86 87 Respiratory Rate 18 14 Blood Pressure 91/55 L 101/60 Pulse Oximetry 99 95 Oxygen Delivery Method Room Air Room Air BMI result Body Mass Index 25.5 Labs 08/16/24 08:23 Medications Medications Current Medications Acetaminophen (Acetaminophen 325 Mg Tablet) 650 mg PO Q6H PRN PRN Reason: Headache/Pain Mild Scale (1-3) Last Admin: 08/17/24 15:59 Dose: 650 mg Al Hydroxide/Mg Hydroxide (Magnesium Hydrox/Alum Hydrox 30 Ml Oral.Susp) 30 ml PO Q6H PRN PRN Reason: Heartburn/Nausea Bupropion HCl (Bupropion Hcl Xl 300 Mg Tab.Er.24h) 300 mg PO DAILY [facility] Last Admin: 08/21/24 08:47 Dose: 300 mg Gabapentin (Gabapentin 300 Mg Capsule) 300 mg PO TID [facility] Last Admin: 08/21/24 08:47 Dose: 300 mg Hydroxyzine HCl (Hydroxyzine Hcl 25 Mg Tablet) 25 mg PO Q6H PRN PRN Reason: Anxiety Last Admin: 08/20/24 21:35 Dose: 25 mg Ibuprofen (Ibuprofen 400 Mg Tablet) 400 mg PO Q6H PRN PRN Reason: Pain, Moderate(Pain Scale 4-6) Last Admin: 08/20/24 15:00 Dose: 400 mg Loratadine (Loratadine 10 Mg Tablet) 10 mg PO DAILY [facility] Last Admin: 08/21/24 08:47 Dose: 10 mg Magnesium Hydroxide (Milk Of Magnesia 30 Ml Oral.Susp) 30 ml PO DAILY PRN PRN Reason: Constipation Melatonin (Melatonin 3 Mg Tablet) 9 mg PO BEDTIME [facility] Last Admin: 08/20/24 21:35 Dose: 9 mg Nicotine (Nicotine 21 Mg Patch.Td24) 21 mg TRANSDERMA DAILY PRN PRN Reason: smoking cessation Nicotine Polacrilex (Nicotine Polacrilex 2 Mg Gum) 4 mg BUCCAL Q2H PRN PRN Reason: nicotine cravings Omeprazole (Omeprazole 40 Mg Capsule.Dr) 40 mg PO DAILY@0630 [facility] Last Admin: 08/21/24 06:41 Dose: 40 mg Trazodone HCl (Trazodone Hcl 50 Mg Tablet) 150 mg PO BEDTIME [facility] Last Admin: 08/20/24 21:35 Dose: 150 mg Venlafaxine HCl (Venlafaxine Hcl Er 37.5 Mg Cap.Er.24h) 37.5 mg PO DAILY [facility] Last Admin: 08/21/24 08:47 Dose: 37.5 mg Allergies Allergies Allergy/AdvReac Type Severity Reaction Status Date / Time Unable to Assess Allergy Verified 08/15/24 23:33 Assessment & Plan Assessment & Plan (1) MDD (major depressive disorder), recurrent episode, severe: Status: Acute Code(s): F33.2 - Major depressive disorder, recurrent severe without psychotic features (2) PTSD (post-traumatic stress disorder): Status: Acute Code(s): F43.10 - Post-traumatic stress disorder, unspecified Plan Patient is a 54-year-old female with history of MDD, PTSD who was brought in by ambulance to ER due to suicidal ideation secondary to increased depressive symptoms and medication noncompliance. Plan: CV 1:1 Continue home medications encourage groups obtain collateral Referral to outpatient psychiatric providers discharge planning 08/17: Continue current regimen and plans. Added Prilosec 40 mg daily 08/18: feeling a bit improved since restarting meds, SI now 5/10. continue current mgmt. 08/19: Active on unit, social with peers. attending groups. observed laughing and joking with peers. patient reports she is starting to feel better ; she reports sleeping well. Patient states she plans on continuing to take her medications as prescribed. denies SI/HI/VH/AH. Discussed plan to discharge home early next week if she continues to improve. 08/20: Continue current management and treatment plan. 08/21: Continue current management and treatment plan. Reason for continued inpatient stay Substantial Risk for: harm to self, inability to function and med/psych decompensation Time Spent With Patient Time: Total time managing care of this patient today ____ minutes.
[2024-08-21 20:00] VITALS: BP 90/63; PULSE 86; RESP 15; TEMP 36.3; O2SAT 99
[2024-08-21] MEDS: Melatonin 3 MG TABLET 9 MG PO (20:36)
[2024-08-21] MEDS: hydrOXYzine HCL 25 MG TABLET PO (20:37)
[2024-08-21] MEDS: traZODone HCL 50 MG TABLET 150 MG PO (20:37)
[2024-08-22] MEDS: Omeprazole 40 MG CAPSULE.DR PO (06:52)
[2024-08-22 08:15] VITALS: BP 93/65; PULSE 89; RESP 16; TEMP 36.4; O2SAT 95
[2024-08-22] MEDS: Loratadine 10 MG TABLET PO (08:37)
[2024-08-22] MEDS: Venlafaxine HCl ER 37.5 MG CAP.ER.24H PO (08:37)
[2024-08-22] MEDS: Gabapentin 300 MG CAPSULE PO ×3 (08:37→21:28)
[2024-08-22] MEDS: buPROPion HCl XL 300 MG TAB.ER.24H PO (09:05)
--- NOTE | 2024-08-22 09:39 | P.PNPSI_ITS ---
Subjective Subjective Date of Service: 08/22/24 Reason For Visit: MDD severe w/o psychosis Subjective Notes: Conditional Voluntary Interim History: Active on unit, social with peers. attending groups. Patient reports feeling better than when I came here ; pt stated, I'm not feeling anxious or depressed with the pills and I'm sleeping a lot better . Patient reports she plans on following up with her outpatient providers. denies SI/HI/VH/AH. Medication Compliance: Yes Side effects from medications: No Attending Groups: Yes Review of Systems Constitutional: Reports as per HPI Eyes: Reports as per HPI Reports as per HPI Cardiovascular: Reports as per HPI Respiratory: Reports as per HPI Gastrointestinal: Reports as per HPI Genitourinary: Reports as per HPI Musculoskeletal: Reports as per HPI Skin/Breast: Reports as per HPI Reports as per HPI Psychiatric: Reports as per HPI Endocrine: Reports as per HPI Hematologic/Lymphatic: Reports as per HPI Allergic/Immunologic: Reports as per HPI Mental Status Exam Mental Status Exam Narrative: Pt is alert and oriented; behavior is cooperative, friendly and calm; dressed in casual attire; mood is described as good ; eye contact appropriate; Speech is normal rate, volume and not pressured; thought process is organized; Thought content is on tx; denies SI/HI/VH/AH. Diagnostics Vital Signs (24Hr): Vital Signs - 24 hr 08/21/24 20:00 Temperature 97.4 F Pulse Rate 86 Respiratory Rate 15 Blood Pressure 90/63 Pulse Oximetry 99 BMI result Body Mass Index 25.5 Labs 08/16/24 08:23 Medications Medications Current Medications Acetaminophen (Acetaminophen 325 Mg Tablet) 650 mg PO Q6H PRN PRN Reason: Headache/Pain Mild Scale (1-3) Last Admin: 08/17/24 15:59 Dose: 650 mg Al Hydroxide/Mg Hydroxide (Magnesium Hydrox/Alum Hydrox 30 Ml Oral.Susp) 30 ml PO Q6H PRN PRN Reason: Heartburn/Nausea Bupropion HCl (Bupropion Hcl Xl 300 Mg Tab.Er.24h) 300 mg PO DAILY [facility] Last Admin: 08/22/24 09:05 Dose: 300 mg Gabapentin (Gabapentin 300 Mg Capsule) 300 mg PO TID [facility] Last Admin: 08/22/24 08:37 Dose: 300 mg Hydroxyzine HCl (Hydroxyzine Hcl 25 Mg Tablet) 25 mg PO Q6H PRN PRN Reason: Anxiety Last Admin: 08/21/24 20:37 Dose: 25 mg Ibuprofen (Ibuprofen 400 Mg Tablet) 400 mg PO Q6H PRN PRN Reason: Pain, Moderate(Pain Scale 4-6) Last Admin: 08/20/24 15:00 Dose: 400 mg Loratadine (Loratadine 10 Mg Tablet) 10 mg PO DAILY [facility] Last Admin: 08/22/24 08:37 Dose: 10 mg Magnesium Hydroxide (Milk Of Magnesia 30 Ml Oral.Susp) 30 ml PO DAILY PRN PRN Reason: Constipation Melatonin (Melatonin 3 Mg Tablet) 9 mg PO BEDTIME [facility] Last Admin: 08/21/24 20:36 Dose: 9 mg Nicotine (Nicotine 21 Mg Patch.Td24) 21 mg TRANSDERMA DAILY PRN PRN Reason: smoking cessation Nicotine Polacrilex (Nicotine Polacrilex 2 Mg Gum) 4 mg BUCCAL Q2H PRN PRN Reason: nicotine cravings Omeprazole (Omeprazole 40 Mg Capsule.Dr) 40 mg PO DAILY@0630 [facility] Last Admin: 08/22/24 06:52 Dose: 40 mg Trazodone HCl (Trazodone Hcl 50 Mg Tablet) 150 mg PO BEDTIME [facility] Last Admin: 08/21/24 20:37 Dose: 150 mg Venlafaxine HCl (Venlafaxine Hcl Er 37.5 Mg Cap.Er.24h) 37.5 mg PO DAILY [facility] Last Admin: 08/22/24 08:37 Dose: 37.5 mg Allergies Allergies Allergy/AdvReac Type Severity Reaction Status Date / Time Unable to Assess Allergy Verified 08/15/24 23:33 Assessment & Plan Assessment & Plan (1) MDD (major depressive disorder), recurrent episode, severe: Status: Acute Code(s): F33.2 - Major depressive disorder, recurrent severe without psychotic features (2) PTSD (post-traumatic stress disorder): Status: Acute Code(s): F43.10 - Post-traumatic stress disorder, unspecified Plan Patient is a 54-year-old female with history of MDD, PTSD who was brought in by ambulance to ER due to suicidal ideation secondary to increased depressive symptoms and medication noncompliance. Plan: CV 1:1 Continue home medications encourage groups obtain collateral Referral to outpatient psychiatric providers discharge planning 08/17: Continue current regimen and plans. Added Prilosec 40 mg daily 08/18: feeling a bit improved since restarting meds, SI now 12/31. continue current mgmt. 08/19: Active on unit, social with peers. attending groups. observed laughing and joking with peers. patient reports she is starting to feel better ; she reports sleeping well. Patient states she plans on continuing to take her medications as prescribed. denies SI/HI/VH/AH. Discussed plan to discharge home early next week if she continues to improve. 08/20: Continue current management and treatment plan. 08/21: Continue current management and treatment plan. 08/22: Active on unit, social with peers. attending groups. Patient reports feeling better than when I came here ; pt stated, I'm not feeling anxious or depressed with the pills and I'm sleeping a lot better . Patient reports she plans on following up with her outpatient providers. denies SI/HI/VH/AH. Plan to discharge home tomorrow. Patient educated on: diagnosis and medication risk/benefits Reason for continued inpatient stay Substantial Risk for: stable for discharge Time Spent With Patient Time: Total time managing care of this patient today _20___ minutes.
[2024-08-22 19:45] VITALS: BP 119/66; PULSE 96; RESP 16; TEMP 36.4; O2SAT 96
[2024-08-22] MEDS: traZODone HCL 50 MG TABLET 150 MG PO (21:28)
[2024-08-22] MEDS: Melatonin 3 MG TABLET 9 MG PO (21:28)
[2024-08-23] MEDS: Omeprazole 40 MG CAPSULE.DR PO (05:50)
[2024-08-23 07:37] VITALS: BP 100/56; PULSE 88; RESP 16; TEMP 36.5; O2SAT 99
[2024-08-23] MEDS: Gabapentin 300 MG CAPSULE PO (08:11)
[2024-08-23] MEDS: Venlafaxine HCl ER 37.5 MG CAP.ER.24H PO (08:11)
[2024-08-23] MEDS: Loratadine 10 MG TABLET PO (08:11)
[2024-08-23] MEDS: buPROPion HCl XL 300 MG TAB.ER.24H PO (08:11)
--- NOTE | 2024-08-23 08:58 | PM.PSYDC ---
DS: Providers Provider Date of Service: 08/23/24 Date of admission: 08/15/24 21:32 Date of discharge: 08/23/24 Primary care physician: Unknown Physician Admitting clinician: Barbie Haskins Attending physician on admission: Kelvin Norton Consults: 08/15/24 23:33 Consult to Hospitalist Routine Comment: Consulting Provider: [facility] Reason For Exam: admission physical Attending physician on discharge: Kelvin Norton Discharging clinician: Barbie Haskins DS: Diagnosis Discharge Diagnosis (1) MDD (major depressive disorder), recurrent episode, severe: Status: Acute (2) PTSD (post-traumatic stress disorder): Status: Acute DS: Medications Discharge Medications Home Medications: Previous Rx's ?Medication ?Instructions ?Recorded bupropion HCl 300 mg 24 hr tablet, 300 mg PO DAILY 30 days #30 tabs 08/22/24 extended release gabapentin 300 mg capsule 300 mg PO TID 30 days #90 caps 08/22/24 trazodone 150 mg tablet 150 mg PO BEDTIME 30 days #30 tabs 08/22/24 venlafaxine 37.5 mg 37.5 mg PO DAILY 30 days #30 caps 08/22/24 capsule,extended release 24 hr Mental Status Exam Mental Status Exam Narrative: Pt is alert and oriented; behavior is cooperative, friendly and calm; dressed in casual attire; mood is described as good ; eye contact appropriate; Speech is normal rate, volume and not pressured; thought process is organized; Thought content is on tx; denies SI/HI/VH/AH. Data Data Completed and Pending Completed studies during hospitalization [Text1]: 08/16/24 08/18/24 08:23 16:34 Sodium 141 Potassium 4.8 Chloride 104 Carbon Dioxide 27 Anion Gap 15 BUN 17 H Creatinine 0.83 Estim Creat Clear Calc 70.4 Estimated GFR > 60 Random Glucose 97 Calcium 9.8 Total Bilirubin 0.2 AST 19 ALT 23 Alkaline Phosphatase 76 Total Protein 7.6 Albumin 4.2 Triglycerides 201 H Cholesterol 203 H LDL Cholesterol, Calc 109 H HDL Cholesterol 54 TSH 2.63 Urine Color Yellow Urine Appearance Clear Urine pH 5.5 Ur Specific [place] 1.010 Urine Protein Negative Urine Glucose (UA) Negative Urine Ketones Negative Urine Blood Small (1+) H Urine Nitrite Negative Ur Leukocyte Esterase Trace H Urine RBC 3-5 H Urine WBC 0-5 Ur Squamous Epith Cells 0-2 Urine Bacteria None Seen Hyaline Casts 0-2 DS: Summary Hospital Course Hospital Course: Patient is a 54-year-old female with history of MDD, PTSD who was brought in by ambulance to ER due to suicidal ideation secondary to increased depressive symptoms and medication noncompliance. Per crisis report, patient reported suicidal ideation with a plan on a suicide hotline however, refused to divulge details of her plan but stated she will do something after the new year . Patient reported that she had given up taking her psychiatric medications after her father in December. She also reports that her uncle in June. Patient reports multiple life stressors. She reports chronic passive suicidal ideation; denies HI/VH/AH. History of suicide attempts in 1990, 2007 and 2022; patient overdosed on Tylenol PM resulting in a medical admission in 2022. Denies any substance use. Utox negative. During admission assessment, patient presents alert and oriented x3. Calm and cooperative. Patient reports feeling depressed ; patient stated, my father in December and I noticed in January that I just started feeling worse. I gave up on life and stopped taking my meds. I want to get back on my meds to not feel depressed and not cry every second . denies SI/HI/VH/AH. Patient reports she would like referrals to outpatient psychiatric providers. Plan: CV 1:1 Continue home medications encourage groups obtain collateral Referral to outpatient psychiatric providers discharge planning Continue current regimen and plans. Added Prilosec 40 mg daily feeling a bit improved since restarting meds, SI now 5/10. continue current mgmt. Active on unit, social with peers. attending groups. observed laughing and joking with peers. patient reports she is starting to feel better ; she reports sleeping well. Patient states she plans on continuing to take her medications as prescribed. denies SI/HI/VH/AH. Discussed plan to discharge home early next week if she continues to improve. Active on unit, social with peers. attending groups. Patient reports feeling better than when I came here ; pt stated, I'm not feeling anxious or depressed with the pills and I'm sleeping a lot better . Patient reports she plans on following up with her outpatient providers. denies SI/HI/VH/AH. Plan to discharge home. Status at Discharge Cognitive/behavioral status at discharge: Patient was interviewed prior to discharge and found to be fully oriented and without SI or HI. Patient has insight and demonstrates good judgment in terms of wanting to pursue treatment. Patient has a safety plan that includes presenting to the closest ER or calling 911 if feeling unsafe. Functional status at discharge: wheelchair bound Overall status at discharge: patient is back to baseline Time Spent with Patient Time attestation: Total time managing care of this patient today _20___ minutes. Time spent: Less than 30 minutes Discharge Plan Discharge Anticipated Discharge Date/Time: 08/23/24 11:30 Patient Disposition: Home, Self-Care Discharge Diagnosis: MDD, PTSD Referrals: Kimberly Encinas (Therapy & Psychiatry) [Other] - 08/25/24 11:00 am (IN OFFICE INTAKE APPOINTMENT) Luanne ALVES [Other] - 1 Week (Please call to make a follow up appointment with your provider within 1 week of discharge.) Discharge Medications: New bupropion HCl 300 mg Tablet Extended Release 24 Hr 300 mg PO DAILY 30 Days Qty: 30 0RF gabapentin 300 mg Capsule 300 mg PO TID 30 Days Qty: 90 0RF trazodone 150 mg tablet 150 mg PO BEDTIME 30 Days Qty: 30 0RF venlafaxine 37.5 mg Capsule,Extended Release 24hr 37.5 mg PO DAILY 30 Days Qty: 30 0RF Discontinued venlafaxine 75 mg capsule,extended release 24hr 225 mg PO DAILY Patient Comments: last picked up 12/23/2023 melatonin 3 mg tablet 9 mg PO BEDTIME Rx Instructions: last picked up 12/23/23 trazodone 100 mg tablet 100 mg PO BEDTIME Patient Comments: patient last received 12/23/2023 gabapentin 300 mg capsule 300 mg PO TID Patient Comments: last picked up on 12/23/23 loratadine 10 mg tablet 10 mg PO DAILY Patient Comments: last picked up 12/23/23 bupropion HCl 300 mg tablet extended release 24 hr 300 mg PO DAILY Patient Comments: last picked up 12/23/23 Discharge Orders: Discharge Order (Routine); Ordered 08/23/24 Ordered By: Barbie Haskins Diet: Regular diet Activity on Discharge: As tolerated Stand Alone Forms: Patient Portal Discharge page, Community Support Print Language: Portuguese Care Plan Goals: Maintain mood and safe behaviors Take medications as prescribed Practice coping skills Continue with outpatient providers and reach out to them as needed Health Concerns: Mood stability and behaviors Plan of Treatment: Follow up with your PCP, psychiatric provider and other outpatient providers regarding above concerns Take medications as prescribed Assessment: Patient was interviewed prior to discharge and found to be fully oriented and without SI or HI. Patient has insight and demonstrates good judgment in terms of wanting to pursue treatment. Patient has a safety plan that includes presenting to the closest ER or calling 911 if feeling unsafe. Discharge Date/Time: 08/23/24 09:12
== END 2024-08-23 09:12 | disposition home or self-care (01) | DRG 751 ==
PROVIDERS: Psychiatry & Neurology Psychiatry; Admitting Provider Psychiatry & Neurology Psychiatry; Responsible Provider Registered Nurse; Visit Provider Psychiatry & Neurology Psychiatry
DX: F33.2 Major depressive disorder, recurrent severe without psychotic features (principal); R45.851 Suicidal ideations; F43.10 Post-traumatic stress disorder, unspecified; G11.10 Early-onset cerebellar ataxia, unspecified; Z99.3 Dependence on wheelchair; Z87.891 Personal history of nicotine dependence; Z79.899 Other long term (current) drug therapy
CPT/HCPCS: 36415; 80053; 80061; 81001; 83036; 84443; 90656

== ENCOUNTER → 2024-08-15 21:32 | Outpatient (BNV) | payer BC, MEDICAID, SELFPAY | PROVIDERS: Admitting Provider Psychiatry & Neurology Psychiatry; Responsible Provider Registered Nurse; Visit Provider Registered Nurse | DX: F33.2 Major depressive disorder, recurrent severe without psychotic features (principal); F43.11 Post-traumatic stress disorder, acute | CPT/HCPCS: 90792; 99231; 99232 ==

== ENCOUNTER → 2024-08-15 21:32 | Outpatient (BNV) | payer BC, MEDICAID, SELFPAY | PROVIDERS: Admitting Provider Psychiatry & Neurology Psychiatry; Responsible Provider Registered Nurse; Visit Provider Student in an Organized Health Care Education/Training Program | DX: Z02.2 Encounter for examination for admission to residential institution (principal) | CPT/HCPCS: 99429 ==